=== PATIENT | female | born 1945 | race Caucasian/White ===

== ENCOUNTER 2018-06-05 14:39 | Emergency (ER) | payer MEDICARE, BC ==
[2018-06-05 15:35] VITALS: BP 163/76
[2018-06-05] MEDS ORDERED: diphenhydrAMINE 50 MG/ML SDV IM ONE (15:50)
--- NOTE | 2018-06-05 15:56 | EDM.PDOC ---
ED HPI GENERAL MEDICAL PROBLEM - General Chief Complaint: Bite:Animal, Insect Stated Complaint: BEE STING Time Seen by Provider: 06/05/18 15:40 Source of Information: Reports: Patient History Limitations: Reports: No Limitations - History of Present Illness INITIAL COMMENTS - FREE TEXT/NARRATIVE: 72-year-old female who has had past fairly severe reactions to bee stings get stung on the right ankle 4 hours ago. Within 10 minutes she started feeling some diffuse itching so gave herself an EpiPen and called the ambulance. EMS provided no further care, her symptoms resolved in route and when she got to the hospital other than some mild diffuse itching she felt fine. No shortness of breath, no nausea or vomiting, no headache, no widespread rash or hives. Onset: Sudden Duration: Hour(s): (4 hours ago) Location: Reports: Lower Extremity, Right Associated Symptoms: Reports: Other (Diffuse itching) - Related Data Allergies Allergy/AdvReac Type Severity Reaction Status Date / Time venom-honey bee Allergy Anaphylactic Verified 06/05/18 15:39 [bee venom (honey bee)] Shock Home Meds: Home Meds Latanoprost [Xalatan 0.005% Ophth Soln] 1 drop EYEBOTH BEDTIME 04/19/15 [History ] Sertraline [Zoloft] 100 mg PO DAILY 04/19/15 [History] diphenhydrAMINE [Benadryl] 50 mg PO QID PRN 04/21/15 [History] Loratadine 10 mg PO DAILY 06/05/18 [History] Past Medical History HEENT History: Reports: Impaired Vision Other Musculoskeletal History: L rib fx with pneumothorax 2 yrs ago fell off horse/ chest tube Psychiatric History: Reports: Depression Social & Family History - Tobacco Use Smoking Status *Q: Never Smoker - Caffeine Use Caffeine Use: Reports: Coffee ED ROS GENERAL - Review of Systems Review Of Systems: See Below Constitutional: Denies: Fever, Chills HEENT: Reports: No Symptoms. Denies: Throat Swelling Respiratory: Denies: Shortness of Breath Cardiovascular: Denies: Chest Pain GI/Abdominal: Denies: Abdominal Pain, Nausea, Vomiting Skin: Reports: Pruritis Neurological: Reports: No Symptoms ED EXAM, ANIMAL BITE - Physical Exam Exam: See Below Exam Limited By: No Limitations General Appearance: Alert, No Apparent Distress Throat/Mouth: Normal Inspection Head: Atraumatic Respiratory/Chest: No Respiratory Distress, Lungs Clear Extremities: No: Pedal Edema Neurological: Alert, Oriented Psychiatric: Normal Affect, Normal Mood Skin Exam: Normal Color, Other (Patient had some erythema around the right ankle extending up the lateral right lower leg continuous with the sting area) Course - Vital Signs Last Recorded V/S: Last Vital Signs Temp 96.0 F 06/05/18 15:38 Pulse 94 06/05/18 15:38 Resp 16 06/05/18 15:38 BP 163/76 H 06/05/18 15:38 Pulse Ox 92 L 06/05/18 15:38 - Orders/Labs/Meds Meds: Medications Discontinued Medications Generic Name Dose Route Start Last Admin Trade Name Freq PRN Reason Stop Dose Admin Diphenhydramine HCl 50 mg 06/05/18 15:50 06/05/18 15:56 Benadryl IM 06/05/18 15:51 50 mg ONETIME ONE Administration - Re-Assessments/Exams Free Text/Narrative Re-Assessment/Exam: 06/05/18 15:53 Patient was reassured, given 50 mg of IM Benadryl and observed for half hour. She continued to improve and was discharged in good condition. Departure - Departure Time of Disposition: 16:09 Disposition: Home, Self-Care 01 Condition: Good Clinical Impression: Allergic reaction to bee sting Qualifiers: Encounter type: initial encounter Injury intent: accidental or unintentional Qualified Code(s): T63.441A - Toxic effect of venom of bees, accidental ( unintentional), initial encounter - Discharge Information Instructions: Bee, Wasp, or Hornet Sting, Adult Referrals: Jessie Martin PA [Primary Care Provider] - Forms: ED Department Discharge Care Plan Goals: Repeated doses of Benadryl every 4-6 hours may help persistent itching, ice to the bite area will decrease swelling. Return anytime if worsening despite treatment such as difficulty breathing or swelling.
== END 2018-06-05 16:09 | disposition home or self-care (01) ==
LOC: JP.ED 14:39
DX: T63.441A Toxic effect of venom of bees, accidental (unintentional), initial encounter (principal); F32.9 Major depressive disorder, single episode, unspecified; Z91.030 Bee allergy status
CPT/HCPCS: 96372; 99283; J1200